=== PATIENT | female | born 1970 | race Caucasian/White ===

== ENCOUNTER 2022-09-30 08:37 | Emergency (ER) | payer MEDICAID ==
[~2022-09-30] VITALS: Ht 157.5 cm; Wt 63.0 kg
[2022-09-30 08:46] VITALS: O2SAT 97
[2022-09-30] MEDS ORDERED: CYCL5TAB MT (10:49)
[2022-09-30] MEDS ORDERED: IBUP-2029 MT ×3 (10:49→10:51)
[2022-09-30 11:55] VITALS: BP 148/78; PULSE 60; RESP 16; TEMP 97.7
== END 2022-09-30 11:57 | disposition home or self-care (01) ==
LOC: ER 08:37
DX: S00.83XA Contusion of other part of head, initial encounter (principal); V49.9XXA Car occupant (driver) (passenger) injured in unspecified traffic accident, initial encounter; Y93.89 Activity, other specified; Y92.89 Other specified places as the place of occurrence of the external cause; Y99.8 Other external cause status
CPT/HCPCS: 99283